=== PATIENT | female | born 1995 | race Two or more races ===

== ENCOUNTER 2018-06-02 08:14 | Emergency (ER) | payer MEDICAID ==
[2018-06-02] MEDS ORDERED: PROCHLORPERAZINE MALEATE 10 MG TABLET PO ONE (09:21)
--- NOTE | 2018-06-02 09:28 | ER Document Report ---
ED Headache - General Chief Complaint: Headache Stated Complaint: HEAD PAIN Time Seen by Provider: 06/02/18 09:16 Mode of Arrival: Ambulatory Information source: Patient Notes: 22-year-old female presents the emergency department with complaints of a headache that started this morning. Patient describes the pain as a sharp and stabbing sensation behind the left eye. She denies any radiation of the pain. She denies any alleviating or exacerbating factors. Patient did take Tylenol prior to arrival and in the emergency department. She states that this is not helped with the headache. Patient denies a history of migraine headaches. Denies vision changes, speech changes, numbness, tingling, weakness. No fever. Has vomited twice this morning. I have greeted and performed a rapid initial assessment of this patient. A comprehensive ED assessment and evaluation of the patient, analysis of test results and completion of the medical decision making process will be conducted by additional ED providers. PHYSICAL EXAMINATION: GENERAL: Well-appearing, well-nourished and in no acute distress. HEAD: Atraumatic, normocephalic. EYES: Pupils equal round extraocular movements intact, conjunctiva are normal. ENT: Nares patent NECK: Normal range of motion LUNGS: No respiratory distress Musculoskeletal: Normal range of motion NEUROLOGICAL: Normal speech, normal gait. PERRLA. EOMI. PSYCH: Normal mood, normal affect. SKIN: Warm, Dry, normal turgor, no rashes or lesions noted. - Related Data Allergies/Adverse Reactions: diphenhydramine [From Benadryl] Allergy (Verified 06/02/18 08:21) Past Medical History - Social History Smoking Status: Never Smoker Chew tobacco use (# tins/day): No Frequency of alcohol use: Rare Drug Abuse: None Family History: None Patient has suicidal ideation: No Patient has homicidal ideation: No Renal/ Medical History: Denies: Hx Peritoneal Dialysis Physical Exam - Vital signs Vitals: Temp Pulse Resp BP Pulse Ox 97.5 F 66 18 130/85 H 98 06/02/18 08:27 06/02/18 08:27 06/02/18 08:27 06/02/18 08:27 06/02/18 08:27 Course - Vital Signs Vital signs: Temp Pulse Resp BP Pulse Ox 97.5 F 66 18 130/85 H 98 06/02/18 08:27 06/02/18 08:27 06/02/18 08:27 06/02/18 08:27 06/02/18 08:27
[2018-06-02] MEDS ORDERED: NORMAL SALINE 500 ML IV ONE (09:57)
[2018-06-02 11:10] LABS: ABSOLUTE EOSINOPHILS # (AUTO) 0.1 10^3/uL (0.0-0.6); ABSOLUTE MONOCYTES (AUTO) 0.7 10^3/uL (0.1-1.4); ABSOLUTE NEUT (AUTO) 3.7 10^3/uL (1.7-8.2); BASOPHILS % (AUTO) 0.3 % (0-2); EOSINOPHILS % (AUTO) 2.2 % (0-6); HEMATOCRIT 39.2 % (36.0-47.0); HEMOGLOBIN 13.5 g/dL (12.0-15.5); MEAN CORPUSCULAR HEMOGLOBIN 28.3 pg (27.0-33.4); MEAN CORPUSCULAR HGB CONC 34.4 g/dL (32.0-36.0); MEAN CORPUSCULAR VOLUME 82 fl (80-97); MONOCYTES % (AUTO) 10.4 % (3-13); PLATELET COUNT 188 10^3/uL (150-450); RED BLOOD COUNT 4.77 10^6/uL (3.72-5.28); RED CELL DISTRIBUTION WIDTH 13.8 % (11.5-14.0); SEGMENTED NEUTROPHILS % (AUTO) 56.1 % (42-78); TOTAL CELLS COUNTED % (AUTO) 100 %; WHITE BLOOD COUNT 6.5 10^3/uL (4.0-10.5)
[2018-06-02 11:44] LABS: ALANINE AMINOTRANSFERASE 49 U/L (9-52); ALKALINE PHOSPHATASE 80 U/L (38-126); ANION GAP 10 (5-19); ASPARTATE AMINO TRANSFERASE 39 U/L (14-36); BILIRUBIN,DIRECT 0.2 mg/dL (0.0-0.4); BILIRUBIN,TOTAL 0.5 mg/dL (0.2-1.3); BLOOD UREA NITROGEN 10 mg/dL (7-20); CALCIUM 8.8 mg/dL (8.4-10.2); CARBON DIOXIDE 24 mmol/L (22-30); CHLORIDE 106 mmol/L (98-107); GLUCOSE 94 mg/dL (75-110); POTASSIUM 4.4 mmol/L (3.6-5.0); SODIUM 140.1 mmol/L (137-145); TOTAL PROTEIN 6.9 g/dL (6.3-8.2)
[2018-06-02] MEDS ORDERED: KETOROLAC TROMETHAMINE INJ/PF 30 MG/1 ML SDV IV ONE (12:15)
--- NOTE | 2018-06-02 13:41 | ER Document Report ---
ED General - General Chief Complaint: Headache Stated Complaint: HEAD PAIN Time Seen by Provider: 06/02/18 09:16 Mode of Arrival: Ambulatory Information source: Patient Notes: This is a 22-year-old female with a history of hypothyroidism, borderline diabetes, history of headaches during (told they were migrainous) who presents to the emergency room with left-sided headache, nausea and vomiting. Patient states she awoke feeling fine and the headache started while she was making breakfast. She denies that this is the worst headache of her life. She did get nausea and vomited twice and came to the emergency room. She denies any fever or recent illnesses. - HPI Onset: This morning Onset/Duration: Gradual Quality of pain: Dull Severity: Moderate Pain Level: 2 Associated symptoms: denies: Chest pain, Fever, Shortness of breath Exacerbated by: Denies Relieved by: Denies Similar symptoms previously: Yes Recently seen / treated by doctor: No - Related Data Allergies/Adverse Reactions: diphenhydramine [From Benadryl] Allergy (Verified 06/02/18 08:21) Past Medical History - General Information source: Patient - Social History Smoking Status: Never Smoker Cigarette use (# per day): No Chew tobacco use (# tins/day): No Frequency of alcohol use: Rare Drug Abuse: None Lives with: Family Family History: None Patient has suicidal ideation: No Patient has homicidal ideation: No - Past Medical History Cardiac Medical History: Reports: None Pulmonary Medical History: Reports: None EENT Medical History: Reports: None Neurological Medical History: Reports: Hx Migraine Endocrine Medical History: Reports: Hx Hypothyroidism Renal/ Medical History: Reports: None. Denies: Hx Peritoneal Dialysis Malignancy Medical History: Reports: None GI Medical History: Reports: None Musculoskeletal Medical History: Reports None Skin Medical History: Reports None Psychiatric Medical History: Reports: None Surgical Hx: Negative Review of Systems - Review of Systems Constitutional: denies: Chills, Fever EENT: No symptoms reported Cardiovascular: No symptoms reported Respiratory: No symptoms reported Gastrointestinal: No symptoms reported Genitourinary: No symptoms reported Female Genitourinary: No symptoms reported Musculoskeletal: No symptoms reported Skin: No symptoms reported Hematologic/Lymphatic: No symptoms reported Neurological/Psychological: See HPI Physical Exam - Vital signs Vitals: Temp Pulse Resp BP Pulse Ox 97.5 F 66 18 130/85 H 98 06/02/18 08:24 10/15/18 08:24 06/02/18 08:24 06/02/18 08:24 06/02/18 08:24 Notes: Physical exam: GENERAL: Patient is alert and oriented x3, no acute distress. HEAD: Atraumatic, normocephalic. EYES: Pupils equal round and reactive to light, extraocular movements intact, sclera anicteric, conjunctiva are normal. ENT: TMs normal, nares patent, oropharynx clear without exudates. Moist mucous membranes. NECK: Normal range of motion, supple without obvious mass or JVD. LUNGS: Breath sounds clear to auscultation bilaterally and equal. No wheezes rales or rhonchi. HEART: Regular rate and rhythm without murmurs, rubs or gallops. ABDOMEN: Soft, normoactive bowel sounds. No tenderness to palpation. No guarding, no rebound. No masses appreciated. EXTREMITIES: Normal range of motion, no pitting or edema. No clubbing or cyanosis. NEUROLOGICAL: Cranial nerves II through XII grossly intact. Normal speech, motor is 5/5, sensory grossly intact, cerebellar (finger to nose) is good, Romberg negative, gait normal, reflexes are symmetrical. PSYCH: Normal mood, normal affect. SKIN: Warm, Dry, normal turgor, no rashes or lesions noted. Course - Re-evaluation Re-evalutation: 06/02/18 20:30 Patient was feeling much better on repeat exam. She was ambulated around the ER and her pain was 0 out of 10. - Vital Signs Vital signs: Temp Pulse Resp BP Pulse Ox 98.2 F 67 18 100/67 100 06/02/18 13:57 06/02/18 13:57 06/02/18 08:27 06/02/18 13:57 06/02/18 13:57 - Laboratory Result Diagrams: 06/02/18 10:51 06/02/18 10:51 Laboratory results interpreted by me: 06/02/18 10:51 AST 39 H Discharge - Discharge Clinical Impression: Headache Condition: Stable Disposition: HOME, SELF-CARE Instructions: Antinausea Medication ([facility]), Headache ([facility]) Additional Instructions: As we discussed, your labs look good. I would take ibuprofen as needed for the headache. You could take the nausea medicine as needed. Return to the emergency room for worsening headache, fever, light bothering the eyes, any concerns or getting worse. I would recommend following up with your doctor at [facility]. You can bring a copy of today's labs with you. I did call the pharmacy at [facility] on [address] and they have refilled your levothyroxine.
[2018-06-02] MEDS ORDERED: ONDANSETRON ODT 4 MG TAB (6 TAB/ER DISP) PO PRN (13:48)
[2018-06-02 14:51] VITALS: BP 130/85
== END 2018-06-02 13:57 | disposition home or self-care (01) ==
LOC: ER 08:14
DX: R51 Headache (principal); E03.9 Hypothyroidism, unspecified; E11.9 Type 2 diabetes mellitus without complications
CPT/HCPCS: 99284; 96361; 96374; 36415; 84702; 85025; 80053; J1885; S0183; J7040

== ENCOUNTER 2018-09-02 13:24 | Emergency (ER) | payer MEDICAID ==
[2018-09-02 13:30] VITALS: BP 118/64
[2018-09-02] MEDS ORDERED: FAMOTIDINE 20 MG TABLET PO ONE (13:50)
--- NOTE | 2018-09-02 14:20 | ER Document Report ---
HPI - HPI Patient complains to provider of: skin rash Time Seen by Provider: 09/02/18 13:42 Onset: Other - 5 days Onset/Duration: Persistent Pain Level: Denies Context: Patient presents complaining of skin rash that is pruritic for the past 5 days. Patient was seen at a facility yesterday and given steroids and a prescription for steroids. Patient states that the steroid medication did help her rash but she is not yet gotten the prescription filled or taken it today. Patient denies any new foods medications or detergents. Patient denies any facial swelling difficulty breathing nausea or vomiting. Associated Symptoms: Other - Skin rash Exacerbated by: Denies Relieved by: Denies Similar symptoms previously: No Recently seen / treated by doctor: Yes - ROS ROS below otherwise negative: Yes Systems Reviewed and Negative: Yes All other systems reviewed and negative - CONSTITUTIONAL Constitutional: DENIES: Fever - EENT EENT: DENIES: Sore Throat, Congestion - CARDIOVASCULAR Cardiovascular: DENIES: Chest pain - RESPIRATORY Respiratory: DENIES: Trouble Breathing - GASTROINTESTINAL Gastrointestinal: DENIES: Nausea, Patient vomiting - REPRODUCTIVE Reproductive: DENIES: : - DERM Skin Color: Normal Skin Problems: Rash Past Medical History - General Information source: Patient - Social History Smoking Status: Never Smoker Frequency of alcohol use: None Drug Abuse: None Occupation: None Lives with: Family Family History: None Patient has suicidal ideation: No Patient has homicidal ideation: No Neurological Medical History: Reports: Hx Migraine Endocrine Medical History: Reports: Hx Hypothyroidism Renal/ Medical History: Denies: Hx Peritoneal Dialysis Surgical Hx: Negative Vertical Provider Document - CONSTITUTIONAL Agree With Documented VS: Yes Exam Limitations: No Limitations General Appearance: WD/WN, No Apparent Distress - INFECTION CONTROL TRAVEL OUTSIDE OF THE [place] IN LAST 30 DAYS: No - HEENT HEENT: Atraumatic, Normal ENT Exam, Normocephalic Notes: No angioedema, no potential airway compromise, intact oral and ocular mucosa - NECK Neck: Normal Inspection, Supple. negative: Lymphadenopathy-Left, Lymphadenopathy-Right - RESPIRATORY Respiratory: Breath Sounds Normal, No Respiratory Distress, Chest Non-Tender - CARDIOVASCULAR Cardiovascular: Regular Rate, Regular Rhythm, No Murmur - BACK Back: Normal Inspection - MUSCULOSKELETAL/EXTREMETIES Musculoskeletal/Extremeties: MAEW - NEURO Level of Consciousness: Awake, Alert, Appropriate Motor/Sensory: No Motor Deficit - DERM Integumentary: Warm, Dry, Rash - Erythematous macular rash distributed to upper and lower extremities and dorsal aspect of hands and feet. No plantar lesions noted on feet, questionable faint lesions to the palmar surface of hand. No peeling of skin. Course - Re-evaluation Re-evalutation: 09/02/18 14:18 Patient states that she was seen somewhere yesterday and given a dose of steroid medication which did help with her symptoms. Patient was given a prescription for steroids but left it at home and did not get it filled yet. Patient encouraged to restart steroid medication as well as take a histamine blocking drug and Maggi as she has taken this in the past without adverse reaction given her previous adverse reaction to Benadryl. No concern for anaphylaxis. Patient stable for discharge. - Vital Signs Vital signs: Temp Pulse Resp BP Pulse Ox 97.4 F 62 20 118/64 100 09/02/18 13:29 09/02/18 13:29 09/02/18 13:29 09/02/18 13:29 09/02/18 13:29 Discharge - Discharge Clinical Impression: Skin rash Condition: Stable Disposition: HOME, SELF-CARE Instructions: Antihistamines ([facility]), Steroid Medication Additional Instructions: Return immediately for any new or worsening symptoms Followup with your primary care provider, call tomorrow to make a followup appointment Get your prescription for the steroid medication filled and take as prescribed. Prescriptions: Famotidine [Pepcid 20 mg Tablet] 20 mg PO BID #12 tablet Fexofenadine HCl [Maggi] 180 mg PO DAILY #10 tablet Referrals: [facility] [Provider Group] - Follow up as needed
== END 2018-09-02 14:33 | disposition home or self-care (01) ==
LOC: ER 13:24
DX: R21 Rash and other nonspecific skin eruption (principal); T38.0X6A Underdosing of glucocorticoids and synthetic analogues, initial encounter; Z91.128 Patient's intentional underdosing of medication regimen for other reason; Z91.14 Patient's other noncompliance with medication regimen
CPT/HCPCS: 99283; 36415; 86592; J3490